=== PATIENT | male | born 1965 | race Caucasian/White ===

== ENCOUNTER 2017-04-29 03:16 | Emergency (ER) | payer BC ==
[~2017-04-29 03:16] MED LIST: COREG PO; FLEXERIL10 M1 PO; IBUPROFEN800 MG PO; KEFLEX PO; LISINOPRIL PO; LOPRESSOR PO; LORTAB 5/500 TA1 TA1 PO; PHENERGAN25 M1 PO; VICODIN 5/1 TAB 5/50 PO; [UNRECOGNIZED DRUG - REMARK]
== END 2017-04-29 04:18 | disposition home or self-care (01) ==
LOC: CED 03:16
DX: H61.23 Impacted cerumen, bilateral (principal); I10 Essential (primary) hypertension; E03.9 Hypothyroidism, unspecified; F17.210 Nicotine dependence, cigarettes, uncomplicated; Z79.899 Other long term (current) drug therapy; Z88.5 Allergy status to narcotic agent
CPT/HCPCS: 99282